=== PATIENT | female | born 1960 | race Caucasian/White ===

== ENCOUNTER → 2016-09-12 | Outpatient (CLI) | payer OTHER ==
--- NOTE | 2016-09-12 14:52 | KCIC ---
Coronary artery calcium score dated September 12, 2016. No comparison available. Clinical Indication: Calcium screening. Positive family history with Dad. Technical factors: Computed tomography of the heart was performed with ECG gating, suspended respiration and without the administration of contrast material. Post processing was performed on the 3-D computer workstation using diastolic phase images to measure the amount of coronary vascular calcium. Scoring was acquired using the Agatston Method. Results: Thorax: No significant abnormality is identified in the lungs or mediastinum. Note that this CT exam is limited to the heart and adjacent structures. Coronary arteries: Calcium is absent. Left Main coronary artery: 0. Left anterior descending coronary artery: 0. Left circumflex coronary artery: 0. Right coronary artery: 0. Total Agaston calcium score equals 0. Coronary vascular calcium is not detected with this exam. This does not absolutely rule out the presence of atherosclerotic plaque, including unstable plaque, but does imply a very low likelihood of significant luminal narrowing or obstruction. A negative test may be consistent with a low risk of cardiovascular event in the next 2 to 5 years. Conclusion: Normal study, no coronary artery calcium identified. Recommendations:: Healthy lifestyle choices including cessation of smoking and eating appropriately and exercise are encouraged. Additional supporting information concerning the findings and recommendation contained within this report can be found in the consensus statements on coronary vascular calcium published by the [place] [employer] and [place] [employer] 5 Conference (Circulation 1996; 94: 7817-9140; J Am [place] Cardiol 2000; 36: 326-340 and Circulation 2000; 101: 111-116). Electronically signed by: Steve Collazo MD (09/12/2016 2:49 PM)
--- NOTE | 2016-09-12 15:40 | KCIC ---
EXAM: Dual energy x-ray absorptiometry (DEXA). HISTORY: Postmenopausal female presents for osteoporosis screening. COMPARISON: None. TECHNIQUE: Dual energy x-ray absorptiometry of the lumbar spine and left hip was performed. Calculation of bone mineral density based on standard deviations above or below the expected young adult normal value (T-score) was completed. FINDINGS: The average bone mineral density in the 1st through 4th lumbar vertebrae is 1.227 g/cmxcm, corresponding with a T-score of 1.6. The average total bone mineral density in the left hip is 0.881 g/cmxcm, corresponding with a T-score of -0.5. IMPRESSION: Normal bone mineral density. Note: Definitions established by the World Health Organization: 1. Normal: T-score is -1.0 or above. 2. Osteopenia: T-score is between -1.0 and -2.5 . 3. Osteoporosis: T-score is -2.5 or below. Electronically signed by: Angie Christianson MD (09/12/2016 3:37 PM)
== END ==
LOC: KCIC CT 13:33
PROVIDERS: ATTEND Family Medicine
DX: I10 Essential (primary) hypertension (principal); Z13.820 Encounter for screening for osteoporosis; M81.0 Age-related osteoporosis without current pathological fracture; R29.890 Loss of height; Z78.0 Asymptomatic menopausal state
CPT/HCPCS: 75571; 77080

== ENCOUNTER → 2019-12-17 | Outpatient (CLI) | payer OTHER ==
--- NOTE | 2019-12-17 15:04 | KCIC ---
Bone mineral density exam History: Postmenopausal Comparison: 09/12/2016 Findings: Bone mineral density examination utilizing DEXA was performed. Left hip bone mineral density of 0.909 g/cm2 corresponds with a T score -0.3, Z score 0.6. There has been 3.2% increase. The bone mineral density of the lumbar spine was 1.285 g/cm2 which corresponds with a T-score of 2.2, Z score 3.4. There has been 4.7% increase. By World Congress on Osteoporosis criteria, a T score of 0 to-1 SD is considered to be within normal limits. A T score of -1 to -2.5 SD is considered osteopenia. A T score less than -2.5 SD is considered osteoporosis Impression: 1. There is normal bone density of the lumbar spine and the left hip. Electronically signed by: Agapito Wills MD (12/17/2019 3:02 PM) [id number]
== END | disposition home or self-care (01) ==
LOC: KCIC DEXA 13:50
PROVIDERS: ATTEND Obstetrics & Gynecology
DX: Z78.0 Asymptomatic menopausal state (principal)
CPT/HCPCS: 77080